=== PATIENT | female | born 1985 | race Caucasian/White ===

== ENCOUNTER 2017-01-06 14:58 | Emergency (ER) | payer MEDICARE, OTHER ==
--- NOTE | 2017-01-06 15:04 | ED Physician Chart ---
Chief Complaint/HPI - Patient Information Date Seen:: 01/06/17 Time Seen:: 15:04 Chief Complaint:: leg pain History of Present Illness:: 31-year-old female complains of acute, severe, 10 out of 10, aching, left lower leg pain. Has associated right foot pain. Pain started about 20 minutes prior to arrival and she suffered mechanical trip and hit her foot and the leg on a flight of stairs. 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 Historian:: Patient Review:: Nurse's Note Reviewed Review of Systems - Review of Systems Other: Complete system review otherwise unremarkable except as noted in history of present illness. Past Medical History - Past Medical History Past Medical History: Other (apparent history of DVTs) Family History: None Social History: Non Smoker, No Alcohol, No Drug Use, Other Surgical History: None Psychiatricy History: None Medication: Reviewed Family Medical History - Family Member Mother History Unknown: Yes Other Medical History: heart disease Physical Exam - Physical Examination Other:: INITIAL VITAL SIGNS: Reviewed by me GENERAL: Alert and interactive. Appears to be in pain. HEAD: Head is normocephalic and atraumatic EYES: EOMI. No scleral icterus. No conjunctival injection ENT: Moist mucous membranes. NECK: Supple. No masses. Full range of motion RESPIRATORY: No tachypnea. Clear breath sounds bilaterally. No wheezing, rales, or rhonchi CV: Regular rate and rhythm. No murmurs, rubs, or gallops ABDOMEN: Soft, non-distended, non-tender. No guarding. No rebound. No masses. EXTREMITIES: No deformity. No cyanosis. No edema. No signs of any injury. Patient severely tender to palpation even to light touch in the left lower extremity and right lower extremity. SKIN: Warm and dry. No obvious rashes. NEUROLOGIC: Alert and oriented. Face is symmetric. Speech is normal. Moves all extremities equally. Motor and sensory distally intact. Labs/Radiology/EKG Results - Lab Results Results: Lab Results 01/06/17 01/06/17 01/06/17 Range/Units 15:20 15:20 15:45 PT 10.0 (9.5-11.5) SECONDS INR 0.96 (0.5-1.4) PTT (Actin FS) 20.2 L (26.0-38.0) SECONDS Sodium (136-145) mEq/L Potassium (3.5-5.1) mEq/L Chloride (98-107) mEq/L Carbon Dioxide (21.0-31.0) mEq/L Anion Gap (7.0-16.0) BUN (7-25) mg/dL Creatinine (0.6-1.2) mg/dL Est GFR ( Amer) (>90) ml/min Est GFR (Non-Af Amer) ml/min BUN/Creatinine Ratio Glucose (70-105) mg/dL Calcium (8.6-10.3) mg/dL Total Bilirubin (0.3-1.0) mg/dL AST (13-39) U/L ALT (7-52) U/L Alkaline Phosphatase (34-104) U/L Total Protein (6.0-8.3) gm/dL Albumin (3.7-5.3) gm/dL Globulin gm/dL Albumin/Globulin Ratio (1.0-1.8) Urine Source CLEAN C Urine Color STRAW Urine Clarity CLEAR (CLEAR) Urine pH 6.0 Ur Specific [place] 1.015 (1.005-1.030) Urine Protein NEGATIVE (NEGATIVE) mg/dL Urine Glucose (UA) NEGATIVE (NEGATIVE) mg/dL Urine Ketones NEGATIVE (NEGATIVE) mg/dL Urine Blood TRACE (NEGATIVE) Urine Nitrate NEGATIVE (NEGATIVE) Urine Bilirubin NEGATIVE (NEGATIVE) Urine Urobilinogen 0.2 (0.2 - 1.0) E.U./dL Ur Leukocyte Esterase MODERATE H (NEGATIVE) Urine RBC 0-2 (0-5) /hpf Urine WBC 6-10 H (0-5) /hpf Ur Epithelial Cells OCCASIONAL (FEW) /lpf Urine Bacteria NONE SEEN (NONE SEEN) /hpf Urine Test NEGATIVE 01/06/17 Range/Units 15:45 PT (9.5-11.5) SECONDS INR (0.5-1.4) PTT (Actin FS) (26.0-38.0) SECONDS Sodium 135 L (136-145) mEq/L Potassium 3.6 (3.5-5.1) mEq/L Chloride 110 H (98-107) mEq/L Carbon Dioxide 21.1 (21.0-31.0) mEq/L Anion Gap 7.5 (7.0-16.0) BUN 15 (7-25) mg/dL Creatinine 0.8 (0.6-1.2) mg/dL Est GFR ( Amer) > 60.0 (>90) ml/min Est GFR (Non-Af Amer) > 60.0 ml/min BUN/Creatinine Ratio 18.8 Glucose 88 (70-105) mg/dL Calcium 10.3 (8.6-10.3) mg/dL Total Bilirubin 0.6 (0.3-1.0) mg/dL AST 16 (13-39) U/L ALT 7 (7-52) U/L Alkaline Phosphatase 57 (34-104) U/L Total Protein 7.7 (6.0-8.3) gm/dL Albumin 4.5 (3.7-5.3) gm/dL Globulin 3.2 gm/dL Albumin/Globulin Ratio 1.4 (1.0-1.8) Urine Source Urine Color Urine Clarity (CLEAR) Urine pH Ur Specific [place] (1.005-1.030) Urine Protein (NEGATIVE) mg/dL Urine Glucose (UA) (NEGATIVE) mg/dL Urine Ketones (NEGATIVE) mg/dL Urine Blood (NEGATIVE) Urine Nitrate (NEGATIVE) Urine Bilirubin (NEGATIVE) Urine Urobilinogen (0.2 - 1.0) E.U./dL Ur Leukocyte Esterase (NEGATIVE) Urine RBC (0-5) /hpf Urine WBC (0-5) /hpf Ur Epithelial Cells (FEW) /lpf Urine Bacteria (NONE SEEN) /hpf Urine Test - Radiology Results Results: Patient refused x-rays ED Septic Shock - . Is Septic Shock (SBP<90, OR Lactate>4 mmol\L) present?: No Reassessment (Disposition) - Reassessment Reassessment:: Patient has a very strange affect. She is able to bear weight on her extremities but any type of even light palpation to the extremities. Questioned further about the Coumadin and Lovenox, the patient claims that she does not bruise. I asked her specifically to see her stomach which showed no indications of receiving any type of Lovenox injections. There were no indications of any trauma to the lower extremities or anywhere on her body. The patient initially refused the ultrasound. Then refused x-ray. Citing that she felt too anxious. She said that she had an allergy to morphine but would like to get an injection of morphine with Benadryl. Says that she could not take any other form of medicine. Actions were highly suspicious of drug-seeking behavior. Patient left AMA. Reassessment Condition:: Unchanged - Diagnosis Diagnosis:: Left lower extremity pain, right foot pain - Patient Disposition Discharge/Transfer:: Against Medical Advice Time:: 16:43 Condition at Disposition:: Unchanged ED Discharge Plan - Patient Disposition Admit/Discharge/Transfer: AGAINST MEDICAL ADVICE Condition at Disposition: Stable
[2017-01-06 15:53] LABS: URINE BILIRUBIN NEGATIVE (NEGATIVE); URINE BLOOD TRACE (NEGATIVE); URINE COLOR STRAW; URINE GLUCOSE (UA) NEGATIVE (NEGATIVE); URINE KETONE NEGATIVE (NEGATIVE); URINE PROTEIN NEGATIVE (NEGATIVE)
[2017-01-06 15:54] LABS: URINE UROBILINOGEN 0.2 E.U./dL (0.2 - 1.0)
[2017-01-06 15:55] LABS: URINE EPITHELIAL CELLS OCCASIONAL /lpf (FEW); URINE RBC 0-2 /hpf (0-5)
[2017-01-06 15:56] LABS: URINE BACTERIA NONE SEEN /hpf (NONE SEEN)
[2017-01-06 16:04] LABS: INR 0.96 (0.5-1.4)
[2017-01-06 16:06] LABS: ALB/GLOB RATIO 1.4 (1.0-1.8); ALKALINE PHOSPHATASE 57 U/L (34-104); ANION GAP 7.5 (7.0-16.0); BILIRUBIN,TOTAL 0.6 mg/dL (0.3-1.0); BUN - UREA NITROGEN 15 mg/dL (7-25); BUN/CREATININE RATIO 18.8; CALCIUM SERUM 10.3 mg/dL (8.6-10.3); CARBON DIOXIDE 21.1 mEq/L (21.0-31.0); CHLORIDE 110 mEq/L (98-107); CREATININE - SERUM 0.8 mg/dL (0.6-1.2); GLUCOSE 88 mg/dL (70-105); POTASSIUM SERUM 3.6 mEq/L (3.5-5.1); SGOT 16 U/L (13-39); SGPT/ALT 7 U/L (7-52); SODIUM SERUM 135 mEq/L (136-145)
[2017-01-06 16:54] LABS: AMPHETAMINE URINE NEGATIVE (NEGATIVE); BARBITURATES URINE NEGATIVE (NEGATIVE); METHADONE URINE NEGATIVE (NEGATIVE)
== END 2017-01-06 16:15 | disposition left against medical advice (07) ==
LOC: ER 14:58
DX: M79.661 Pain in right lower leg (principal); Z88.6 Allergy status to analgesic agent
CPT/HCPCS: 36415-UA; 80053-TC; 81001-TC; 81025-TC; 85610-TC; 85730-TC; Z7502

== ENCOUNTER 2018-05-24 19:34 | Emergency (ER) | payer MEDICARE, OTHER ==
[2018-05-24 21:27] LABS: % BASOPHILS 0.6 % (0.0-2.0); % EOSINOPHILS 2.9 % (0.0-5.0); % LYMPHOCYTES 34.7 % (20.0-50.0); % MONOCYTES 6.8 % (2.0-10.0); EOSINOPHILE ABSOLUTE 0.1 Th/cmm (0.1-0.4); HEMATOCRIT 33.5 % (41.0-60); HEMOGLOBIN 10.4 gm/dL (12-16); LYMPHOCYTE ABSOLUTE 1.6 Th/cmm (1.5-3.0); MEAN CELL VOLUME 71.9 fl (81-100); MEAN CORPUSCULAR HEMOGLOBIN 22.4 pg (27.0-31.0); MEAN CORPUSCULAR HGB CONC 31.1 pg (28.0-36.0); MEAN PLATELET VOLUME 9.5 fl; MONOCYTE ABSOLUTE 0.3 Th/cmm (0.3-1.0); NEUTROPHILE ABSOLUTE 2.7 Th/cmm (1.8-8.0); PLATELET COUNT 215 Th/cmm (150-400); RED BLOOD COUNT 4.65 Mil/cmm (3.80-5.10); RED CELL DISTRIBUTION WIDTH 16.6 % (11.5-20.0); WHITE BLOOD COUNT 4.7 Th/cmm (4.8-10.8)
[2018-05-24 21:38] LABS: INR 0.99 (0.5-1.4); PROTHROMBIN TIME (TEST) 10.3 SECONDS (9.5-11.5)
[2018-05-24 21:40] LABS: ALB/GLOB RATIO 1.4 (1.0-1.8); ALKALINE PHOSPHATASE 73 U/L (34-104); ANION GAP 12.9 (7.0-16.0); BILIRUBIN,TOTAL 0.3 mg/dL (0.3-1.0); BUN - UREA NITROGEN 16 mg/dL (7-25); CARBON DIOXIDE 19.6 mEq/L (21.0-31.0); CHLORIDE 106 mEq/L (98-107); CREATININE - SERUM 0.8 mg/dL (0.6-1.2); GFR AFRICAN-AMERICAN > 60.0 ml/min (>90); GFR NON AFRICAN-AMERICAN > 60.0 ml/min; GLUCOSE 83 mg/dL (70-105); MAGNESIUM 2.2 mg/dL (1.9-2.7); PHOSPHOROUS 2.4 mg/dL (2.5-5.0); POTASSIUM SERUM 3.5 mEq/L (3.5-5.1); SGOT 16 U/L (13-39); SGPT/ALT 12 U/L (7-52); SODIUM SERUM 135 mEq/L (136-145); TOTAL PROTEIN,SERUM 8.7 gm/dL (6.0-8.3)
--- NOTE | 2018-05-24 22:40 | ED Physician Chart ---
ED Chief Complaint/HPI - Patient Information Date Seen:: 05/24/18 Time Seen:: 20:39 Chief Complaint:: Left leg pain & swelling History of Present Illness:: Left leg pain & swelling in a patient with a h/o DVT. No h/o PE. No hypercoagulable syndrome. Allergies:: Allergies Allergy/AdvReac Type Severity Reaction Status Date / Time ibuprofen [From Motrin] Allergy Verified 01/06/17 15:06 morphine Allergy Verified 01/06/17 15:06 Vitals:: Vital Signs - 8 hr 05/24/18 20:39 Temp 97.9 F HR 89 RR 16 BP 110/69 Historian:: Patient Review:: Nurse's Note Reviewed ED Review of Systems - Review of Systems General/Constitutional: No fever, No chills, No weight loss, No weakness, No diaphoresis, No edema, No loss of appetite Skin: No skin lesions, No rash, No bruising Head: No headache, No light-headedness Eyes: No loss of vision, No pain, No diplopia ENT: No earache, No nasal drainage, No sore throat, No tinnitus Neck: No neck pain, No swelling, No thyromegaly, No stiffness, No mass noted Cardio Vascular: No chest pain, No palpitations, No PND, No orthopnea, No edema Pulmonary: No SOB, No cough, No sputum, No wheezing GI: No nausea, No vomiting, No diarrhea, No pain, No melena, No hematochezia, No constipation, No hematemesis G/U: No dysuria, No frequency, No hematuria Musculoskeletal: Muscle pain Endocrine: No polyuria, No polydipsia Psychiatric: No prior psych history, No depression, No anxiety, No suicidal ideation Hematopoietic: No bruising, No lymphadenopathy Allergic/Immuno: No urticaria, No angioedema Neurological: No syncope, No focal symptoms, No weakness, No paresthesia, No headache, No seizure, No dizziness, No confusion, No vertigo ED Past Medical History - Past Medical History Obtainable: Yes Past Medical History: Other (deep venous thrombosis) Family Medical History - Family Member Mother History Unknown: Yes ED Physical Exam - Physical Examination General/Constitutional: Awake, Well-developed, well-nourished, Alert, GCS 15, Non-toxic appearing, Ambulatory Other Gen/Cons comments:: Distressed that she may have a left lower extremity clot. Head: Atraumatic Eyes: Lids, conjuctiva normal, PERRL, EOMI Skin: Nl inspection, No rash, No skin lesions, No ecchymosis, Well hydrated, No lymphadenopathy ENMT: External ears, nose nl, TM canals nl, Nasal exam nl, Lips, teeth, gums nl Neck: Nontender, Full ROM w/o pain, No JVD, No nuchal rigidity, No bruit, No mass, No stridor Respiratory: Nl effort/Exclusion, Clear to Auscultation, No Wheeze/Rhonchi/Rales Cardio Vascular: RRR, No murmur, gallop, rubs, NL S1 S2 GI: No tenderness/rebounding/guarding, No organomegaly, No hernia, Normal BS's, Nondistended, No mass/bruits, No McBurney tenderness : No CVA tenderness Other Extremities comments:: Left anterior thigh bruising present. Positive Chiquita's sign on the left. 2+ pulses. NV intact. c/o L calf tenderness. Neuro/Psych: Alert/oriented, Normal sensory exam, Normal motor strength, Judgement/insight normal, Mood normal, Normal gait Misc: Normal back, No paraspinal tenderness ED Labs/Radiology/EKG Results - Lab Results Results: Laboratory Tests 05/24/18 05/24/18 05/24/18 21:16 21:16 21:16 WBC 4.7 L RBC 4.65 Hgb 10.4 L Hct 33.5 L MCV 71.9 L MCH 22.4 L MCHC Differential 31.1 RDW 16.6 Plt Count 215 MPV 9.5 Neutrophils % 55.0 Lymphocytes % 34.7 Monocytes % 6.8 Eosinophils % 2.9 Basophils % 0.6 PT 10.3 INR 0.99 PTT (Actin FS) 30.5 D-Dimer Sodium 135 L Potassium 3.5 Chloride 106 Carbon Dioxide 19.6 L Anion Gap 12.9 BUN 16 Creatinine 0.8 Est GFR ( Amer) > 60.0 Est GFR (Non-Af Amer) > 60.0 BUN/Creatinine Ratio 20.0 Glucose 83 Calcium 11.0 H Phosphorus 2.4 L Magnesium 2.2 Total Bilirubin 0.3 AST 16 ALT 12 Alkaline Phosphatase 73 Total Protein 8.7 H Albumin 5.0 Globulin 3.7 Albumin/Globulin Ratio 1.4 Serum , Qual 05/24/18 05/24/18 21:16 21:16 WBC RBC Hgb Hct MCV MCH MCHC Differential RDW Plt Count MPV Neutrophils % Lymphocytes % Monocytes % Eosinophils % Basophils % PT INR PTT (Actin FS) D-Dimer 103 Sodium Potassium Chloride Carbon Dioxide Anion Gap BUN Creatinine Est GFR ( Amer) Est GFR (Non-Af Amer) BUN/Creatinine Ratio Glucose Calcium Phosphorus Magnesium Total Bilirubin AST ALT Alkaline Phosphatase Total Protein Albumin Globulin Albumin/Globulin Ratio Serum , Qual NEGATIVE ED Assessment - Assessment General Assessment: LLE venous ultrasound read out as negative for a DVT. ED Septic Shock - . Is Septic Shock (SBP<90, OR Lactate>4 mmol\L) present?: No - <6hrs of presentation: Vital Signs: Vital Signs - 8 hr 05/24/18 20:39 Temp 97.9 F HR 89 RR 16 BP 110/69 ED Reassessment (Disposition) - Reassessment Reassessment Condition:: Unchanged - Diagnosis Diagnosis:: Left leg pain Anemia - Aftercare/Follow up Instructions Aftercare/Follow-Up Instructions:: Refer to Discharge Instructions Notes:: Please follow up with your primary care physician. Medication Prescribed:: none - Patient Disposition Discharge/Transfer:: Home Condition at Disposition:: Stable, Unchanged
--- NOTE | 2018-05-25 08:46 | Diagnostic Imaging Report ---
Left lower extremity DVT study HISTORY: History of DVT. Pain COMPARISON: None Technique: Longitudinal and transverse sonographic images of the left lower extremity veins were obtained with doppler analysis. FINDINGS: There is normal compressibility, augmentation and phasicity of the left common femoral, superficial femoral, popliteal, and posterior tibial veins. No thrombus is visualized. IMPRESSION: No evidence of thrombus within the left lower extremity veins.
== END 2018-05-24 22:45 | disposition home or self-care (01) ==
LOC: ER 19:34
DX: M79.605 Pain in left leg (principal); D64.9 Anemia, unspecified; M79.89 Other specified soft tissue disorders; Z86.718 Personal history of other venous thrombosis and embolism; Z88.5 Allergy status to narcotic agent; Z88.6 Allergy status to analgesic agent
CPT/HCPCS: 36415-UA; 80053-TC; 83735-TC; 84100-TC; 84703-TC; 85025-TC; 85379-TC; 85610-TC; 93971-TC-LT